=== PATIENT | male | born 1975 | race Caucasian/White ===

== ENCOUNTER 2017-01-20 15:36 | Emergency (ER) | payer OTHER ==
[~2017-01-20 15:36] MED LIST: ALPRAZOLAM PO; BACTRIM DS TABL1 TA1 PO; BLOOD PRESSURE MED; FLORINEF ACETA0.1 MG PO; IBUPROFEN800 MG PO; KEFLEX500 M1 PO; LOPRESSOR PO; LORCET PO; LORTAB 10/500 T1 TAB PO; LORTAB 5/500 TA1 TA1; LORTAB 7.51 TAB 7.5/ PO; MEDROL DOSEPAK4 MG PO; MEDROL PO; NEURONTIN300 MG PO; NO MEDICATIONS; PHENERGAN PO; ROBITUSSIN A-C-S1 ML PO; SKELAXIN PO; TOPROL XL PO; TYLENOL #3 PO; VICODIN 5/1 TAB 5/50 PO; VOLTAREN50 MG PO; VOLTAREN75 MG PO; WELLBUTRIN PO; WELLBUTRIN XL150 MG PO; XANAX2 MG PO; ZOLOFT50 MG PO; [UNRECOGNIZED DRUG - REMARK]; [UNRECOGNIZED DRUG - REMARK]; [UNRECOGNIZED DRUG - REMARK]
== END 2017-01-20 16:25 | disposition left against medical advice (07) ==
LOC: SED 15:36
DX: S61.411A Laceration without foreign body of right hand, initial encounter (principal); W26.9XXA Contact with unspecified sharp object(s), initial encounter; Y92.9 Unspecified place or not applicable
CPT/HCPCS: 99283